=== PATIENT | female | born 1955 | race Caucasian/White ===

== ENCOUNTER 2020-12-20 11:40 | Day surgery (SDC) | payer OTHER ==
[~2020-12-20] VITALS: Ht 162.6 cm; Wt 82.0 kg
[~2020-12-20 11:40] MED LIST: ALPRAZOLAM0.5 MG PO; CITALOPRAM HBR40 MG PO; CLOBETASOL PROP15 GM TOP; CRESTOR10 MG PO; ESTRADIOL0.5 MG PO; FENOFIBRATE160 MG PO; FLUTICASONE PRO16 GM NS; MONTELUKAST SOD10 MG PO; MOTRIN IB200 MG PO; NORCO 5-325 TA1 EACH PO; NORCO 7.5-3251 EACH PO; NORETHINDRONE AC5 M1 PO; OMEPRAZOLE40 MG PO; SPIRONOLACTONE25 MG PO; VITAMIN D250000 UNIT PO; VITAMIN D35000 UNIT PO
--- NOTE | 2020-12-20 13:57 | NUR ---
12/20/20 1357 Drea,Mari 1353 PT ARRIVED TO PACU PT WAKES TO TACTILE STIMULI AND IS REORIENTED TO PACU AND FALLS EASILY BACK TO SLEEP. VSS. PT PASSING GAS OFF AND ON.
--- NOTE | 2020-12-21 13:09 | PATH ---
[facility] [address] [facility] [place], [place] [address] Signed SPECIMEN(S): A SIGMOID POLYP SPECIMEN(S): B RECTAL POLYP SPECIMEN SOURCE: A. SIGMOID POLYP B. RECTAL POLYP CLINICAL HISTORY: Colonoscopy. History of polyps. MICROSCOPIC DESCRIPTION: Histologic sections of all submitted blocks are examined by light microscopy. These findings, together with the gross examination, support the pathologic diagnosis. FINAL PATHOLOGIC DIAGNOSIS: A. Colon, sigmoid, polyp, polypectomy: - Hyperplastic polyp. - Negative for dysplasia or malignancy. B. Rectum, polyp polypectomy: - Fragments of hyperplastic polyp. - Negative for dysplasia or malignancy. NAL:cml:C2NR GROSS DESCRIPTION: Two specimens are received in two containers, labeled "SH." A. The specimen, labeled "SH, 1," and designated on the requisition "sigmoid polyp," is received in formalin and consists of one moon soft tissue fragment that measures 0.3 cm in greatest dimension. The specimen is entirely submitted in cassette (A1). B. The specimen, labeled "SH, 2," and designated on the requisition "rectal polyp," is received in formalin and consists of three moon soft tissue fragments that measure 0.2 cm in greatest dimension. The specimen is entirely submitted in cassette (B1). AT (under the direct supervision of a pathologist) The Gross Description was prepared using a voice recognition system. The report was reviewed for accuracy; however, sound-alike word errors, addition and/or deletions may occur. If there is any question about this report, please contact Client Services. PERFORMING LABORATORY: The technical component was performed by [employer], Yesica Sanchez, PATIENT NAME: TAMMY HUTCHINS PATHOLOGY DATE OF : 57 REPORT #: [id number] PHYSICIAN: GRACIE SERVIN PCP: CHANTAL CORNELIUS REPORT IS CONFIDENTIAL AND NOT TO BE RELEASED WITHOUT AUTHORIZATION [facility] [address] [place], [place] [address] [place] [address] (Manufacturing Applications Engineer: Angela Parra MD; CLIA# [id number]). Professional interpretation was performed by [facility] [facility], [address] [address] (CLIA# [id number]). Diagnostician: Yuli Wong MD Pathologist Electronically Signed 12/21/2020 Copies: ~ PATIENT NAME: TAMMY HUTCHINS PATHOLOGY DATE OF : 57 REPORT #: [id number] PHYSICIAN: GRACIE SERVIN PCP: CHANTAL CORNELIUS REPORT IS CONFIDENTIAL AND NOT TO BE RELEASED WITHOUT AUTHORIZATION
--- NOTE | 2020-12-21 14:34 | OR ---
[facility] [address] [place], [place] [address] Signed DATE OF OPERATION: 12/20/2020 SURGEON: Melissa Nichols MD PREOPERATIVE DIAGNOSES: 1. History of polyps. 2. Chronic constipation (persistent opiate use). POSTOPERATIVE DIAGNOSIS: Hyperplastic appearing polyps x2 (sigmoid and rectum). PROCEDURE: Total colonoscopy to cecum with cold morcellation polypectomy x2. ANESTHESIA: Intravenous sedation, fentanyl 200 mcg and Versed 10 mg. INDICATION: This 65-year-old white woman is a patient of ISI Kwon at [facility] and also Dr. Taisha Crouch. She was seen by me, anticipating surveillance colonoscopy for prior history of polyp excision. I saw her in August of 2019, more than a year ago. The viral pandemic had scaffold our plans for colonoscopy at that time. She remains constipated and she does take opioid on a daily basis (hydrocodone). She does take MiraLAX as well. She has added fiber to her diet including bran cereal. She does have an external hemorrhoid or tag which is bothersome to her, though never had been thrombosed or infected. She is admitted at this time to undergo surveillance colonoscopy on the basis of her prior history of polyps. She understands the risk of bleeding, infection, and perforation related to colonoscopy and wished to proceed. FINDINGS: The prep was adequate with irrigation and complete colonoscopy was undertaken to the cecum. There were two small polyps, one in the sigmoid and the other in the rectum, probably hyperplastic in histology. She did have an external skin like lesion outside the anal canal, possibly a skin lesion rather than a hemorrhoid, though possibility of hemorrhoid is considered as well. There is no evidence of diverticulosis. No sign of stricture, neoplasm, or colitis. DESCRIPTION OF PROCEDURE: The patient was brought to the endoscopy suite and placed in lateral decubitus position, given intravenous sedation to the point of slurred speech and nystagmus. Given her Electronically Signed By: MELISSA NICHOLS MD 12/21/20 1434 PATIENT NAME: TAMMY HUTCHINS OPERATIVE REPORT DATE OF : 57 REPORT #: [id number] PHYSICIAN: MELISSA NICHOLS MD PCP: MARTHA CORNELIUS REPORT IS CONFIDENTIAL AND NOT TO BE RELEASED WITHOUT AUTHORIZATION [facility] [address] [place], [place] [address] Signed chronic opiate use, she was somewhat resistant to sedation throughout the procedure, though additional medication was adequate to allow for good sedation ultimately. External examination showed either a grade 4 hemorrhoid or perhaps a perianal skin lesion nonpigmented and nonworrisome in appearance. An Olympus video colonoscope was passed in the rectum and manipulated throughout the colon. Irrigation was undertaken as needed. Notably, her MiraLAX bowel prep was late in onset, somewhat later than 12 hours after its ingestion yesterday. This was a testimony likely to her opiate use. In any case, the scope was ultimately advanced to the cecum. The ileocecal valve and appendiceal orifice were normal from that point. The scope was then withdrawn and irrigation undertaken throughout showing no sign of abnormality into the sigmoid where a small polyp was noted, appeared to be hyperplastic, it was excised completely. Further withdrawal showed another such polyp in the low rectum, it too was excised. There was no sign of fissure or hemorrhoids. The scope was then removed and the patient taken to the recovery room in good condition. CONCLUDING DIAGNOSES: 1. Small polyps x2, probably hyperplastic, both excised. 2. Chronic constipation, probably in large part related to opiate use. 3. External hemorrhoids or perianal tags (episodically symptomatic). PLAN: We would recommend repeat colonoscopy in 5 years. If she is still having problems with the perianal skin lesion, it can be excised and we will be happy to do that at the time convenient to her schedule. MD PANTERA Palmer/NAHOMY /[id number] cc: MD Martha Shore Copies: TAISHA CROUCH MD Electronically Signed By: MELISSA NICHOLS MD 12/21/20 1434 PATIENT NAME: TAMMY HUTCHINS OPERATIVE REPORT DATE OF : 57 REPORT #: [id number] PHYSICIAN: MELISSA NICHOLS MD PCP: MARTHA CORNELIUS REPORT IS CONFIDENTIAL AND NOT TO BE RELEASED WITHOUT AUTHORIZATION [facility] [address] [facility] [place], [place] [address] Signed MARTHA CORNELIUS ~ Electronically Signed By: MELISSA NICHOLS MD 12/21/20 1434 PATIENT NAME: TAMMY HUTCHINS OPERATIVE REPORT DATE OF : 57 REPORT #: [id number] PHYSICIAN: MELISSA NICHOLS MD PCP: MARTHA CORNELIUS REPORT IS CONFIDENTIAL AND NOT TO BE RELEASED WITHOUT AUTHORIZATION
== END 2020-12-20 14:57 | disposition home or self-care (01) ==
LOC: OPS 11:40 → DS 11:40 → OPS 13:00 → DS 13:00 → OPS 14:57
PROVIDERS: ATTEND Surgery
PROC: 0DBN8ZZ Excision of Sigmoid Colon, Via Natural or Artificial Opening Endoscopic (ICD-10-PCS; 2020-12-20)
PROC: 0DBP8ZZ Excision of Rectum, Via Natural or Artificial Opening Endoscopic (ICD-10-PCS; principal; 2020-12-20 13:00)
DX: K63.5 Polyp of colon (principal); K62.1 Rectal polyp; K59.09 Other constipation; K64.4 Residual hemorrhoidal skin tags; J32.9 Chronic sinusitis, unspecified; Z86.010 Personal history of colon polyps; Z79.891 Long term (current) use of opiate analgesic
CPT/HCPCS: 99153; G0500; J2250; J2405; J3010; J7121